=== PATIENT | female | born 1980 | race Caucasian/White ===

== ENCOUNTER 2020-08-13 07:07 | Day surgery (SDC) | payer OTHER ==
[~2020-08-13] VITALS: Ht 170.2 cm; Wt 86.4 kg
--- NOTE | ~2020-08-13 | OR ---
[place] [id number] [place], [place] [address] Draft DATE OF OPERATION: 08/13/2020 SURGEON: Erwin Webber MD Patient of Dr. Webber. PREOPERATIVE DIAGNOSIS: Pelvic pain, uterine fibroids. POSTOPERATIVE DIAGNOSIS: Pelvic pain, uterine fibroids plus endometriosis of pelvic peritoneum. PROCEDURE: Total laparoscopic hysterectomy with bilateral salpingectomy and cystoscopy. TEAR DOWN MAN: Dr. Beyer. ANESTHESIA: General. ESTIMATED BLOOD LOSS: 40 mL. SPECIMEN: Uterus, bilateral fallopian tubes. DRAINS: Giradr to bladder. PACKING: None. FINDINGS: Cervix, normal size and shape. Uterus, normal size. Uterus with approximately 2 x 3 cm pedunculated fibroid off the right anterior fundus. The anterior cul-de-sac was free of any endometriosis or adhesions. Posterior cul-de-sac had endometrial implant just medial to the left uterosacral ligament. There was also endometrial implant with puckering in midline, which did pull the distal colon to it, distended pass the posterior cul-de-sac. The left tube was normal in length and normal-appearing PATIENT NAME: MELISSA PEREZ OPERATIVE REPORT DATE OF : 80 REPORT #: [id number] PHYSICIAN: ERWIN WEBBER MD PCP: NO PRIMARY CARE PHYSICIAN REPORT IS CONFIDENTIAL AND NOT TO BE RELEASED WITHOUT AUTHORIZATION [address] [address] Draft fimbriated end with a small paratubal cyst present. The left ovary was normal size and shape without any evidence of endometriosis or adhesions. The right tube was normal in length and normal-appearing fimbriated end and again small paratubal cyst. Right ovary is normal size and shape without any evidence endometriosis or adhesions. Rest of the abdomen and pelvis were free of any masses or adhesions. DESCRIPTION OF PROCEDURE: The patient was brought into the operating room, placed in supine position. After adequate general anesthesia was obtained, was placed in dorsal lithotomy position, prepped and draped in usual sterile fashion. A Girard catheter was placed in the bladder and weighted speculum placed in the vagina. The anterior lip of the cervix was grasped with an Allis clamp and the cervix serially dilated up to a #7 dilator. The VCare uterine manipulator was then carefully inserted through the cervix into the fundus and the balloon filled with water. The weighted speculum and Allis clamp were removed and the cervical cap slid up the manipulator and around the cervix. The vaginal cup was then slid up and pushed against the cervical cap and tightened in place. Attention was then drawn to the abdomen. A small infraumbilical skin incision was made after injecting area with 0.25% Marcaine with epinephrine. The subcutaneous tissue was dissected with Metzenbaum scissors and the fascia identified, grasped, hemostats elevated, nicked with Metzenbaum scissors and extended in transverse fashion using Metzenbaum scissors. The abdominal musculature and peritoneum were opened with blunt finger dissection and S retractor inserted into the incision and spun in 360-degree fashion showing no adhesions or masses, good placement in the abdominal cavity. Shravan cannula and sleeve then entered the abdomen under direct visualization. The S retractor was removed and the balloon filled with air. The trocar was removed and carbon dioxide infused into the abdomen. Laparoscope with video attachment entered the abdomen under direct visualization. The above findings were noted. On the left side approximately 10 cm lateral to the midline and just below the level of the umbilicus, a small skin was injected with 0.25% Marcaine with epinephrine. After transilluminating the abdominal wall to avoid any vessels, a small skin incision was made with a scalpel and a 5 mm bladed trocar and sleeve entered the abdomen under direct visualization. The trocar was removed and blunt grasper inserted. On the right side again, approximately 10 cm lateral to the midline and just below the level of the umbilicus, 0.25% Marcaine with epinephrine was used to inject the area after transilluminating to avoid any vessels. A Veress needle with expandable sleeve was then entered the abdomen under direct visualization. The Veress needle was removed and expandable. Trocar and sleeve were passed through the expandable sleeve into the abdomen under direct visualization. Trocar was removed and the 2nd blunt grasper inserted. The above findings were confirmed. The ligature Sheryl bipolar cautery forceps were used for the dissection. Two fallopian tubes were cauterized along the mesial salpinx and then across the proximal portion of the fallopian tubes and these PATIENT NAME: MELISSA PEREZ OPERATIVE REPORT DATE OF : 80 REPORT #: [id number] PHYSICIAN: ERWIN WEBBER MD PCP: NO PRIMARY CARE PHYSICIAN REPORT IS CONFIDENTIAL AND NOT TO BE RELEASED WITHOUT AUTHORIZATION [facility] [address] [place] [id number] Draft were pulled out through the right port. The left uterosacral ligament and round ligament were cauterized in several places and cut and then the upper broad ligament cauterized, cut and the upper lower leaves of the broad ligament individually opened down the length of the broad ligament and along the midline at the level of the cervical cap to elevate the bladder and drop the ureter away from the area of dissection. The exposed uterine vessels were then cauterized in several places and cut and the rest of the tissue inside the cervical cap was cauterized and cut down to the level of the vaginal wall. On the right side, the same thing was done, cauterizing and cutting the round ligament and the utero-ovarian ligaments, opening the broad ligament anterior and posteriorly, exposed to the midline and then elevating the bladder and dropping the posterior peritoneum, exposing the uterine vessels. These were cauterized in several places and cut and the remaining tissue taken down to the level of the vaginal wall. On the left side, the peritoneum had been taken down to incorporate the small area of peritoneal endometriosis. With the uterine vessels cauterized and cut, the Sonicision was brought in the operating field and posterior vaginal wall opened in the groove of the cervical cap and the incision extended with the Sonicision posterior to anterior on the left side and then posterior to anterior on the right side in the groove of the cup the cervix from the vaginal wall. The uterus was carefully taken out through the vaginal opening and then sponge filled glove put in the vagina so that the abdomen could be re-insufflated. The pelvis was irrigated, suctioned, and examined noted to have good hemostasis. The cuff opening was closed using the Endo Stitch with barbed suture stitching the individual posterior and anterior edges of the cuff starting at the right uterosacral ligament, extending to the left uterosacral ligament, closing the cuff. The very 1st stitch was locked by placing the suture through that loop in the end of the barbed suture. Upon reaching the left edge, this stitch was taken back towards the midline to help lock the suture in place. This closed the cuff and good hemostasis was noted throughout. The remaining endometrial implant in the midline was examined, was noted to be very close to the bowel. It was decided not to attempt cauterizing this at this time because of the increased risk of bowel injury and to see if procedure so far would resolve the pain. At this point, all instruments were removed. The gas allowed to escape and all sleeves removed. The infraumbilical fascia was closed using running stitch of 0 Vicryl suture. The 3 skin incisions were closed using 4-0 Vicryl and subcuticular stitch. The sponge filled glove was removed from vagina. The Girard catheter removed and cystoscope placed in the urethra and entered the bladder under direct visualization. Sterile water was used as distending medium. The dome and both sides of bladder were inspected, showed no stitches, no defects, and no puckering. Both ureteral orifices were identified and good flow of urine was noted to come from both. The bladder was drained, the cystoscope removed, and the Girard catheter placed back in the bladder. The patient tolerated the procedure well, went to recovery room in good condition. The PATIENT NAME: MELISSA PEREZ OPERATIVE REPORT DATE OF : 80 REPORT #: [id number] PHYSICIAN: ERWIN WEBBER MD PCP: NO PRIMARY CARE PHYSICIAN REPORT IS CONFIDENTIAL AND NOT TO BE RELEASED WITHOUT AUTHORIZATION [facility] [address] [place], [place] [address] Draft sponge, needle, and instrument count were correct at the end of procedure. Uterus with both fallopian tubes sent to Pathology for identification. MD BURTON Wagner/MODL /[id number] Copies: ~ PATIENT NAME: MELISSA PEREZ OPERATIVE REPORT DATE OF : 80 REPORT #: [id number] PHYSICIAN: ERWIN WEBBER MD PCP: NO PRIMARY CARE PHYSICIAN REPORT IS CONFIDENTIAL AND NOT TO BE RELEASED WITHOUT AUTHORIZATION
[~2020-08-13 07:07] MED LIST: MOTRIN IB200 MG PO; NORCO 5-325 TA1 EACH PO; PERCOCET 5-3251 EACH PO; POTASSIUM CITRATE PO; SEASONIQUE 0.11 EACH PO; ZOFRAN ODT4 MG PO
--- NOTE | 2020-08-13 11:56 | NUR ---
PT MOTHER, AMY NOTIFIED OF PT STATUS. MOTHER PLANS TO HEAD TOWARDS HOSPITAL SHORTLY.
--- NOTE | 2020-08-13 12:53 | NUR ---
08/13/20 1253 Adrienne Sanon 1136 PT ARRIVED IN PACU DRAWING ARMS UP, INCREASED RESPIRATORY AND HEART RATE. ANESTHESIA GAVE REVERSAL MEDS AT BEDSIDE. 1144 CRYING OUT IN PAIN. FENTANYL 50MCG GIVEN IVP. 1148 PAIN DOWN TO 8/10. FENTANYL 50MCG GIVEN IVP. 1150 PT ANXIOUS AND UNABLE TO RELAX. VERSED 2MG GIVEN IVP. 1200 RESTING. REU. 1214 PAIN DOWN TO 5/10. MORPHINE 3MG GIVEN IVP. 1230 PAIN DOWN TO 3/10. EATING ICE CHIPS WITH RN ASSISTANCE. 1235 TO DS.
--- NOTE | 2020-08-13 13:00 | NUR ---
[id number]: PT RESTING IN BED AWAKE WITH MOTHER AT BEDSIDE. PT ANSWERS QUESTIONS APPROPRIATELY, STATES PAIN IN LOWER ABD 5/10 AND DENIES NAUSEA. PT TOLERATES ICE CHIPS AND IS PROVIDED PUDDING AND WATER. PT EDUCATED ABOUT PAIN MEDICATION AND DC CRITERIA.
--- NOTE | 2020-08-13 13:43 | NUR ---
PT TOLERATES PO WELL, SECOND PUDDING PROVIDED. MOTHER PROVIDED PAIN SCRIPT TO TAKE TO PHARMACY. CALL LIGHT WITHIN REACH.
[2020-08-13] MEDS ORDERED: PERCOCET 5-3251 EACH PO (13:53)
[2020-08-13] MEDS ORDERED: IBUPROFEN800 MG PO (13:54)
--- NOTE | 2020-08-13 14:20 | NUR ---
1400: PT UP AND AMBULATING HALLWAY WITH RN ASSIST. PT DENIES ANY NAUSEA OR DIZZINESS WITH MOVEMENT, HAS STEADY GAIT. PT RATES PAIN "ABOUT THE SAME" 4/10 AND WOULD LIKE SECOND TABLET OF PERCOCET. PT BACK TO DS RM 3 AND APPROX 275 MLS YELLOW URINE EMPTIED FROM TREVINO CATHETER. APPROX 9 MLS CLEAR FLUID REMOVED FROM TREVINO BALLOON AND CATHETER GENTLY REMOVED. PT TOLERATES CATHETER DC AND IS ENCOURAGED TO USE CALL LIGHT WITH URGE TO VOID. CALL LIGHT WITHIN REACH, PT HAS PERSONAL CELL PHONE IN HAND.
--- NOTE | 2020-08-13 14:57 | NUR ---
PT RESTING IN BED AWAKE. STATES PAIN IS "ABOUT THE SAME" WHEN ASKED AND RATES 4/10 AND TOLERABLE. PT UMBILICUS SITE REINFORCED WITH GAUZE AND PAPER TAPE. ENCOURAGED TO USE CALL LIGHT WITH URGE TO VOID.
--- NOTE | 2020-08-13 16:39 | NUR ---
[id number]: PT MOTHER BACK IN ROOM AT THIS TIME. PT STATES SHE "CAN TRY" TO USE BATHROOM. UP WITH RN ASSIST, STEADY GAIT. PT ABLE TO VOID APPROX 250 MLS BRIGHT YELLOW URINE WITH NO PROBLEMS. PT BACK TO DS RM 3 TO GET DRESSED. PT USES CALL LIGHT TO NOTIFY RN OF SATURATED UMBILICUS DRESSING. THIS RN REMOVES DRESSING TO ASSESS, NEW BANDAID WITH GAUZE AND PAPER TAPE PLACED. PT PROVIDED GAUZE AND TAPE TO REINFORCE DRESSING AT HOME IF BECOMES SATURATED. DC INSTRUCTIONS PRESENTED TO PT AND MOTHER, ALL QUESTIONS ADDRESSED. PT DC FROM DS RM 3 VIA WC TO MOTHER AT MAIN HOSPITAL ENTRANCE TO HOME.
--- NOTE | 2020-08-15 16:44 | PATH ---
[facility] [address] [place], [place] [address] Signed SPECIMEN(S): A UTERUS, CERVIX, AND TUBES SPECIMEN SOURCE: A. UTERUS, CERVIX, AND TUBES CLINICAL HISTORY: TLH, BS, cysto. Pelvic pain, leiomyoma of uterus. FINAL PATHOLOGIC DIAGNOSIS: Uterus, cervix, and bilateral fallopian tubes, hysterectomy and bilateral salpingectomy: - Cervix: No histopathologic abnormality. - Endometrium: Weakly proliferative endometrium. - Myometrium: Leiomyomas (3 cm). - Serosa: No histopathologic abnormality. - Fallopian tubes: Paratubal cysts. - No evidence of malignancy. MICROSCOPIC EXAMINATION: Histologic sections of all submitted blocks are examined by light microscopy. These findings, together with the gross examination, support the pathologic diagnosis. GROSS DESCRIPTION: The specimen, labeled "JS," and designated on the requisition "uterus, cervix, bilateral fallopian tubes," is received in formalin and consists of a uterus (105 gram, 6.2 cm left to right, 5.3 cm superior to inferior, and 5.3 cm anterior to posterior), attached cervix (2.5 cm in length x 3.7 cm in diameter) with pink-medina, smooth cervical mucosa and patent slit-shaped os (1.0 x 0.2 cm), and two detached and undesignated fimbriated fallopian tube segments (5.6 cm in length and ranging in diameter from 0.7-1.0 cm, and 5.5 cm in length and ranging in diameter from 0.7-1.3 cm). One fallopian tube segment is arbitrarily inked blue. Both fallopian tube segments are red-brown with attached paratubal cysts (0.7 and 1.4 cm in greatest dimension respectively) and are sectioned reveal a grossly unremarkable cut surface. The fimbriae are entirely submitted. The uterine serosa is pink-medina and distorted by subserosal nodule (3.0 x 2.3 x 2.0 cm). The nodule is sectioned to reveal a white-medina, whorled cut surface. The specimen is opened to reveal a pink-medina to PATIENT NAME: MELISSA PEREZ PATHOLOGY DATE OF : 80 REPORT #: [id number] PHYSICIAN: [facility] PCP: NO PRIMARY CARE PHYSICIAN REPORT IS CONFIDENTIAL AND NOT TO BE RELEASED WITHOUT AUTHORIZATION [facility] [address] [place], [place] [address] Signed hemorrhagic endocervix (endocervical canal: 2.7 cm in length x 0.7 cm in diameter), and endometrial cavity (4.0 cm superior to inferior x 3.4 cm cornu to cornu) with hemorrhagic endometrial lining that measures up to 0.1 cm in thickness. The myometrium is pink-medina and trabeculated with additional intramural white-medina, whorled nodules (ranging in size from 0.2-1.3 cm in greatest dimension). Pulp Grinder Feeder sections are submitted as follows: Cassette Summary: (A1-A2) Fallopian tubes with cysts (A3) Cervix (A4) Endomyometrium (A5-A7) Nodules AC (under the direct supervision of a pathologist) The Gross Description was prepared using a voice recognition system. The report was reviewed for accuracy; however, sound-alike word errors, addition and/or deletions may occur. If there is any question about this report, please contact Client Services. PERFORMING LABORATORY: The technical component was performed by [facility], [address] [place] [id number] (Technical Services Representative: Serenity Cedillo MD; CLIA# [id number]). Professional interpretation was performed by [facility], [facility], [address] [place] [id number] (CLIA# [id number]). Diagnostician: Nidia Spears MD Pathologist Electronically Signed 08/15/2020 Copies: ~ PATIENT NAME: MELISSA PEREZ PATHOLOGY DATE OF : 80 REPORT #: [id number] PHYSICIAN: [facility] PCP: NO PRIMARY CARE PHYSICIAN REPORT IS CONFIDENTIAL AND NOT TO BE RELEASED WITHOUT AUTHORIZATION
== END 2020-08-13 16:10 | disposition home or self-care (01) ==
LOC: DS 07:07 → OPS 07:07
PROVIDERS: ATTEND General Practice
PROC: 0UT94ZZ Resection of Uterus, Percutaneous Endoscopic Approach (ICD-10-PCS; principal; 2020-08-13 08:45)
PROC: 0UT24ZZ Resection of Bilateral Ovaries, Percutaneous Endoscopic Approach (ICD-10-PCS; 2020-08-13 08:45)
PROC: 0UT74ZZ Resection of Bilateral Fallopian Tubes, Percutaneous Endoscopic Approach (ICD-10-PCS; 2020-08-13 08:45)
DX: D25.1 Intramural leiomyoma of uterus (principal); D25.2 Subserosal leiomyoma of uterus; N80.3 Endometriosis of pelvic peritoneum; N83.8 Other noninflammatory disorders of ovary, fallopian tube and broad ligament
CPT/HCPCS: J0690; J1100; J1644; J1885; J2250; J2270; J2405; J2704; J2765; J3010; J7121

== ENCOUNTER → 2021-04-28 | Emergency (ER) | payer OTHER ==
[~2021-04-28] VITALS: Ht 170.2 cm; Wt 100.5 kg
[~2021-04-28] MED LIST changes: +CIPRO500 MG PO; +IBUPROFEN800 MG PO
== END ==
LOC: ED 07:34
DX: N39.0 Urinary tract infection, site not specified (principal); Z79.899 Other long term (current) drug therapy
CPT/HCPCS: 81001; 84703; 99283

== ENCOUNTER 2022-12-29 15:57 | Emergency (ER) | payer OTHER ==
[~2022-12-29] VITALS: Ht 170.2 cm; Wt 105.7 kg
[2022-12-29 19:08] VITALS: BP 138/98
== END 2022-12-29 19:09 | disposition home or self-care (01) ==
LOC: ED 15:57
DX: S40.012A Contusion of left shoulder, initial encounter (principal); V49.40XA Driver injured in collision with unspecified motor vehicles in traffic accident, initial encounter; Z79.899 Other long term (current) drug therapy
CPT/HCPCS: 73030; A9270